=== PATIENT | female | born 1990 | race Two or more races ===

== ENCOUNTER 2018-04-16 12:53 | Emergency (ER) | payer SELFPAY ==
[~2018-04-16] VITALS: Ht 162.6 cm; Wt 61.2 kg
[2018-04-16 13:05] VITALS: BP 110/79
--- NOTE | 2018-04-16 13:18 | Emergency Room Report ---
History of Present Illness General Chief Complaint: General Complaint Source: Patient (Serina Cantu.Briana.) Present Illness HPI patient is a 28-year-old female with no significant past medical history here with her significant other asking for a blood test. Patient claims that her LMP was 3 weeks ago and reports always having regular menses. Patient has been traveling to different places in from [place] in the past 4 weeks, claims that she was last sexually active unprotected weeks ago. Did her first urine test 4 days ago negative following by dissecting urine test 2 days ago negative. Patient's menses is late 2-3 days. She would like to do a lot of tests to confirm positive/negative and is asking about the johnson patient has international insurance. Patient then decided to just have urine test and is asking for practices. Denies vaginal discharge abdominal pain, spotting, chest pain, shortness of breath, palpitations, and all other associated symptoms. Patient is (Serina Cantu P.A.) Allergies: Coded Allergies: No Known Allergies (Unverified , 04/16/18) Patient History Past Medical History: see triage record Past Surgical History: none Pertinent Family History: unable to obtain Last Menstrual Period: unknown Immunizations: UTD Reviewed Nursing Documentation: PMH: Agreed; PSxH: Agreed (Cristajose luismely Deonnanikos P.ARajiv) Nursing Documentation-PMH Past Medical History: No History, Except For (CristaSerina hodges P.A.) Review of Systems All Other Systems: negative except mentioned in HPI (Serina Cantu P.A.) Physical Exam Vital Signs Date Time Temp Pulse Resp B/P (MAP) Pulse Ox O2 Delivery O2 Flow Rate FiO2 04/16/18 12:59 97.8 104 18 110/79 96 Room Air 97.9 Sp02 EP Interpretation: reviewed, normal General Appearance: normal inspection, well appearing, no apparent distress Head: normocephalic ENT: normal ENT inspection, hearing grossly normal Neck: normal inspection, full range of motion Respiratory: normal inspection, chest non-tender, lungs clear, normal breath sounds, no rhonchi Cardiovascular #1: normal inspection, normal peripheral pulses, regular rate, rhythm, no edema, no gallop Gastrointestinal: normal inspection, normal bowel sounds, non tender, soft Rectal: deferred Genitourinary: deferred Musculoskeletal: normal inspection, back normal Neurologic: normal inspection, alert Psychiatric: normal inspection, judgement/insight normal, memory normal Skin: normal inspection, normal color, no rash Lymphatic: normal inspection, no adenopathy, axilla node tender (R) (Serina Cantu P.ARajiv) Medical Decision Making PA Attestation all patient's diagnosis, orders, treatment plans were discussed by my supervising physician Dr. Angela (Serina Cantu P.A.) Diagnostic Impression: Primary Impression: Encounter for test Qualified Codes: Z32.00 - Encounter for test, result unknown ER Course patient is a 28-year-old female with no significant past medical history here with her significant other asking for a blood test. Patient claims that her LMP was 3 weeks ago and reports always having regular menses. Patient has been traveling to different places in from [place] in the past 4 weeks, claims that she was last sexually active unprotected weeks ago. Did her first urine test 4 days ago negative following by dissecting urine test 2 days ago negative. Patient's menses is late 2-3 days. She would like to do a lot of tests to confirm positive/negative and is asking about the johnson patient has international insurance. Patient then decided to just have urine test and is asking for practices. Denies vaginal discharge abdominal pain, spotting, chest pain, shortness of breath, palpitations, and all other associated symptoms. Patient is Ddx considered but are not limited to encounter for test, late menses Vital signs: are WNL, pt. is afebrile H&PE are most consistent with encounter for test ORDERS: none required at this time, the diagnosis is clinical ED INTERVENTIONS: None required at this time. DISCHARGE: At this time pt. is stable for d/c to home. Will provide printed patient care instructions, and any necessary prescriptions. Care plan and follow up instructions have been discussed with the patient prior to discharge. patient chooses to leave without any blood work or any urine sample as she wants to catch her train. She is explained how to do urine test at home. She is explained that feeling questions has to be asked from the billing department and cannot be discussed in today's visit today. He is asked to give a [place] address for the [place] to be sent. Patient mentions that she has no solids [place] address as she is traveling (Serina Cantu) ER Course I discussed this patient in detail. Agree with assessment and plan. (Miguel Cabello M.D.) Last Vital Signs Date Time Temp Pulse Resp B/P (MAP) Pulse Ox O2 Delivery O2 Flow Rate FiO2 04/16/18 13:05 97.9 81 18 110/79 96 Room Air 97.9 (Serina Cantu) Disposition: HOME, SELF-CARE Condition: Stable Patient Instructions: Test Information Serina Cantu Apr 16, 2018 13:18 Miguel Cabello M.D. Apr 17, 2018 14:37
[2018-04-16 13:29] VITALS: BP 110/79
== END 2018-04-16 14:00 | disposition home or self-care (01) ==
LOC: EMR 13:28
DX: Z32.00 Encounter for pregnancy test, result unknown (principal)
CPT/HCPCS: 99282